=== PATIENT | male | born 1945 | race Caucasian/White ===

== ENCOUNTER 2022-08-02 20:11 | Inpatient (IN) | payer OTHER ==
[~2022-08-02] VITALS: Ht 177.8 cm; Wt 45.4 kg
[~2022-08-02 20:11] MED LIST: ALLOPURINOL100 MG PO; LEVOTHYROXINE112 MC1 PO; OXYCODONE HCL5 MG PO
[2022-08-02 20:25] VITALS: BP 95/46
[2022-08-03] VITALS: BP 93/45
[2022-08-03 08:00] VITALS: BP 124/86
[2022-08-03 12:00] VITALS: BP 84/39
[2022-08-03 16:00] VITALS: BP 89/46
[2022-08-03 20:00] VITALS: BP 93/48
[2022-08-04] VITALS: BP 100/46
[2022-08-04 12:30] VITALS: BP 85/35
[2022-08-04 17:15] VITALS: BP 70/26
[2022-08-05] VITALS: BP 66/23
[2022-08-05 08:00] VITALS: BP 59/22
[2022-08-05 16:00] VITALS: BP 48/16
[2022-08-05 20:00] VITALS: BP 46/19
[2022-08-06] VITALS: BP 41/14
[2022-08-06 08:00] VITALS: BP 33/11
[2022-08-06 12:00] VITALS: BP 44/11
== END 2022-08-06 12:11 | DRG 189 ==
LOC: ICCU 20:11 → 4E 20:11
PROVIDERS: ADMIT Emergency Medicine; ATTEND Emergency Medicine
DX: J96.01 Acute respiratory failure with hypoxia (principal); J18.9 Pneumonia, unspecified organism; I21.4 Non-ST elevation (NSTEMI) myocardial infarction; E43 Unspecified severe protein-calorie malnutrition; C34.91 Malignant neoplasm of unspecified part of right bronchus or lung; Z68.1 Body mass index [BMI] 19.9 or less, adult; Z66 Do not resuscitate; Z51.5 Encounter for palliative care